=== PATIENT | male | born 1995 | race Two or more races ===

== ENCOUNTER 2021-03-21 19:26 | Emergency (ER) | payer OTHER ==
[~2021-03-21] VITALS: Ht 177.8 cm; Wt 75.0 kg
[2021-03-21 19:50] VITALS: BP 136/83
--- NOTE | 2021-03-21 20:08 | PHYS DOC ---
Adult General Chief Complaint Chief Complaint: LACERATION/AVULSION HPI HPI Patient is a otherwise healthy 25-year-old male, in the who works at the [employer] and up-to-date on his vaccinations who presents with a right hand laceration that happened as he was walking through a door, and caught his hand. Denies any other injuries. Review of Systems Review of Systems Review of systems otherwise unremarkable except noted in HPI Physical Exam Physical Exam Constitutional: Well developed, well nourished, no acute distress, non-toxic appearance. [] HENT: Normocephalic, atraumatic, bilateral external ears normal, oropharynx moist, no oral exudates, nose normal. [] Extremities: No tenderness, no cyanosis, no clubbing, ROM intact, no edema, a 2 cm laceration on the palmar side of the right hand just inferior to 1st MCP, neurovascular exam intact. [] Neurologic: Alert and oriented X 3, normal motor function, normal sensory function, no focal deficits noted. [] Psychologic: Affect normal, judgement normal, mood normal. [] EKG EKG [] Radiology/Procedures Radiology/Procedures [] Heart Score C/O Chest Pain: No Risk Factors: Risk Factors: DM, Current or recent (<one month) smoker, HTN, HLP, family history of CAD, obesity. Risk Scores: Risk Factors: DM, Current or recent (<one month) smoker, HTN, HLP, family history of CAD, obesity. Course & Med Decision Making Course & Med Decision Making Patient is a 25-year-old male presents with laceration Vital signs not concerning. Physical exam noted above. Patient denies need for pain medicine or ice. States he is up-to-date on his tetanus. No need for repair. Washed significantly and bandaged. Gave patient wound care instructions for home. Gave return precautions to the ED. Advised to call primary care in the morning to update on ED visit. Patient grateful, verbalized understanding and agreed with plan of discharge. [] Dragon Disclaimer Dragon Disclaimer This electronic medical record was generated, in whole or in part, using a voice recognition dictation system. Departure Departure: Impression: Primary Impression: Laceration Disposition: HOME / SELF CARE / HOMELESS Condition: GOOD Referrals: PCP,UNKNOWN (PCP) CARLOS BOOTH MD Patient Instructions: Laceration Care, Adult Additional Instructions: Thank you for coming into the emergency department tonight and allowing us to take care of you. Please read the attached information carefully to go back over some of the things we discussed. Please keep that area clean, dry and bandaged. Please follow-up with your primary care as needed. Please come back to the ED with new or concerning symptoms as we discussed VIC MARIE MD Mar 21, 2021 20:08
== END 2021-03-21 20:52 | disposition home or self-care (01) ==
LOC: ER 19:26
DX: S61.411A Laceration without foreign body of right hand, initial encounter (principal); W23.0XXA Caught, crushed, jammed, or pinched between moving objects, initial encounter; Y93.01 Activity, walking, marching and hiking; Y92.89 Other specified places as the place of occurrence of the external cause; Y99.8 Other external cause status
CPT/HCPCS: 99281